=== PATIENT | female | born 1945 | race Caucasian/White ===

== ENCOUNTER → 2021-05-25 14:13 | Outpatient (BNVA) | payer OTHER, SELFPAY | PROVIDERS: PCP Nurse Practitioner Family; Visit Provider Nurse Practitioner Family | DX: E11.9 Type 2 diabetes mellitus without complications (principal); E78.5 Hyperlipidemia, unspecified; Z90.12 Acquired absence of left breast and nipple | CPT/HCPCS: 80053; 80061; 83036; 84443; 85025 ==

== ENCOUNTER → 2022-02-13 10:40 | Outpatient (BNVA) | payer MEDICARE, SELFPAY | PROVIDERS: PCP Nurse Practitioner Family; Visit Provider Nurse Practitioner Family | DX: E11.9 Type 2 diabetes mellitus without complications (principal); E78.5 Hyperlipidemia, unspecified; I10 Essential (primary) hypertension; J44.9 Chronic obstructive pulmonary disease, unspecified; R23.4 Changes in skin texture; R21 Rash and other nonspecific skin eruption; Z12.39 Encounter for other screening for malignant neoplasm of breast; Z90.12 Acquired absence of left breast and nipple; F17.200 Nicotine dependence, unspecified, uncomplicated | CPT/HCPCS: 80053; 80061; 83036; 84443; 85025 ==

== ENCOUNTER → 2022-08-15 11:28 | Outpatient (BNVA) | payer MEDICARE, SELFPAY | PROVIDERS: PCP Nurse Practitioner Family; Visit Provider Nurse Practitioner Family | DX: E11.9 Type 2 diabetes mellitus without complications (principal); R25.1 Tremor, unspecified; L98.9 Disorder of the skin and subcutaneous tissue, unspecified; I10 Essential (primary) hypertension; E78.5 Hyperlipidemia, unspecified; J44.9 Chronic obstructive pulmonary disease, unspecified; F17.200 Nicotine dependence, unspecified, uncomplicated; Z12.39 Encounter for other screening for malignant neoplasm of breast | CPT/HCPCS: 80053; 80061; 83036; 84443; 85025 ==

== ENCOUNTER → 2022-12-20 13:43 | Outpatient (BNVA) | payer MEDICARE, SELFPAY | PROVIDERS: PCP Nurse Practitioner Family; Visit Provider Nurse Practitioner Family | DX: E11.9 Type 2 diabetes mellitus without complications (principal); E78.5 Hyperlipidemia, unspecified; I10 Essential (primary) hypertension; R23.4 Changes in skin texture; R21 Rash and other nonspecific skin eruption | CPT/HCPCS: 80053; 83036; 84443; 85025 ==

== ENCOUNTER → 2023-07-10 14:14 | Outpatient (BNVA) | payer BC, SELFPAY | PROVIDERS: PCP Nurse Practitioner Family; Visit Provider Nurse Practitioner Family | DX: E11.9 Type 2 diabetes mellitus without complications (principal); E78.5 Hyperlipidemia, unspecified; I10 Essential (primary) hypertension; R23.4 Changes in skin texture; R21 Rash and other nonspecific skin eruption; Z12.39 Encounter for other screening for malignant neoplasm of breast; Z85.3 Personal history of malignant neoplasm of breast; Z12.11 Encounter for screening for malignant neoplasm of colon | CPT/HCPCS: 80053; 80061; 83036; 84443; 85025 ==

== ENCOUNTER 2023-07-25 12:26 | Outpatient (CLI) | payer MEDICARE, SELFPAY ==
--- NOTE | 2023-07-25 13:00 | MM_ITS ---
WS: [id number] RIGHT 3D TOMOSYNTHESIS DIGITAL MAMMOGRAPHY WITH CAD CLINICAL INFORMATION: Z12.39 - Encounter for other screening for malignant neop... HISTORY: LEFT mastectomy COMPARISON: None available TECHNIQUE: 3 views of the right breast were obtained. FINDINGS: The right breast is composed of heterogeneous fibroglandular density tissue, which can limit the dete ction of small underlying mass lesions. Incidental punctate calcifications. No suspicious focal mass, asymmetry, calcifications, or architectural distortion. No evidence of serg gnancy. IMPRESSION: MM/[place] [id number] BI-RADS: 2-Benign FOLLOW UP: 1 Year Follow-up Recommend return to annual diagnostic mammography.
== END 2023-07-25 12:27 | disposition home or self-care (01) ==
PROVIDERS: PCP Nurse Practitioner Family; Visit Provider Nurse Practitioner Family
DX: Z12.31 Encounter for screening mammogram for malignant neoplasm of breast (principal); Z85.3 Personal history of malignant neoplasm of breast; Z90.12 Acquired absence of left breast and nipple
CPT/HCPCS: 77061; G0279

== ENCOUNTER 2023-08-29 06:25 | Day surgery (SDC) | payer MEDICARE, SELFPAY ==
[2023-08-29 06:38] VITALS: BMI 31.8
[2023-08-29 06:46] VITALS: BP 149/94; PULSE 94; RESP 20; TEMP 36.1; O2SAT 98
[2023-08-29] MEDS: sodium chloride 0.9% 1,000 ML 30 ML IV (06:55)
[2023-08-29 06:59] LABS: Glucose Point of Care 161 mg/dL (70-110)
--- NOTE | 2023-08-29 07:02 | P.HP_ITS ---
Providers/Chief Complaint Primary Care Provider: DUKE Short Chief Complaint: Z86.010 History of Present Illness Franca Rooney is a 78 year old female Review of Systems General: Reports: 10 or more systems reviewed and unremarkable except in HPI and below Medications/Allergies Home Medications Medication Instructions Recorded Confirmed Last Taken Type blood-glucose meter (Blood Glucose #1 ea 05/25/21 08/27/23 08/27/23 Rx Monitoring kit) atorvastatin 40 mg tablet 40 mg PO DAILY #90 tabs 07/11/23 08/27/23 08/27/23 Rx blood sugar diagnostic (Blood #100 ea 07/11/23 08/27/23 Unknown Rx Glucose Test strips) fluticasone fur. 200 mcg-umeclid 1 inh inhalation DAILY #60 ea 07/11/23 08/27/23 08/27/23 Rx 62.5 mcg-vilant 25 mcg inhalat.powder (Trelegy Ellipta) lancets 31 gauge #100 ea 07/11/23 08/27/23 08/27/23 Rx lisinopril 20 1 tab PO DAILY #90 tabs 07/11/23 08/27/23 08/27/23 Rx mg-hydrochlorothiazide 25 mg tablet metformin 1,000 mg tablet 1,000 mg PO DAILY #90 tabs 07/11/23 08/27/23 08/27/23 Rx triamcinolone acetonide 0.1 % 1 applic topical BID #30 grams 07/11/23 08/27/23 08/27/23 Rx topical ointment primidone 50 mg tablet 100 mg (2 x 50 mg) PO BID #360 tabs 07/23/23 08/27/23 08/27/23 Rx guaifenesin 600 mg tablet, 600 mg PO Q12H PRN Congestion 08/29/23 08/29/23 08/27/23 History extended release 12 hr (Mucinex) naproxen 220 mg-diphenhydramine 25 1 tab PO QPM 08/29/23 08/29/23 08/27/23 History mg tablet (Aleve PM) Allergies Allergy/AdvReac Type Severity Reaction Status Date / Time No Known Allergies Allergy Unverified 07/18/23 09:37 PFSH Acute PFSH: Medical History (Updated 07/18/23 @ 10:04 by Garrett Srivastava DO) Smoker COPD (chronic obstructive pulmonary disease) Hyperlipemia Essential hypertension Hx of breast cancer Surgical History (Updated 07/18/23 @ 10:04 by Garrett Srivastava DO) Hx of colonoscopy with polypectomy 5-8 yrs ago [facility] H/O subtotal mastectomy of left breast Hx of cholecystectomy Hx of cataract surgery History of tonsillectomy and adenoidectomy Social History Smoking and tobacco/nicotine status: current every day tobacco/nicotine user Second hand smoke exposure: No Alcohol intake: never Substance/Drug Use: never Adopted: No Caregiver/support person: No Lives independently: Yes Household members: none Housing: House Marital status: / Current occupational status: retired Vitals/I&O/Wt Last Vital Signs Temp 97 F L 08/29/23 06:46 Pulse 94 08/29/23 06:46 Resp 20 H 08/29/23 06:46 BP 149/94 08/29/23 06:46 Pulse Ox 98 08/29/23 06:46 O2 Del Method Room Air 08/29/23 06:46 Weight last 48 hrs Weight 180 lb A&P Assessment and plan (1) History of colonic polyps: Plan Colonoscopy Attestations Medical Necessity Statement*: Home Coding Level of Care Code Acute Code for Chg Fwd Diagnoses History of colonic polyps Z86.010
--- NOTE | 2023-08-29 07:15 | ANES.PREANE2 ---
Pre-Anesthetic Assessment Height/Weight: Height 1.6 m Weight 81.647 kg Temp Pulse Resp BP Pulse Ox O2 Del Method 97 F L 94 20 H 149/94 98 Room Air 08/29/23 06:46 08/29/23 06:46 08/29/23 06:46 08/29/23 06:46 08/29/23 06:46 08/29/23 06:46 Preop Diagnosis: screening Operation Date: 08/29/23 07:30 Proposed Procedures p Colonoscopy(Not Applicable) - Garrett Srivastava, DO Was Beta Julia taken within 24 hours: N/A Was Clonidine taken within 24 hours: N/A Last intake: Intake Last Liquid Date 08/28/23 Last Liquid Time 21:30 Last Solid Date 08/27/23 Last Solid Time 19:30 Social Tobacco and No alcohol Exam alert, oriented x 3 and regular rate & rhythm Airway Submandibular: within normal limits Cervical ROM: within normal limits Mallampati: Class II History/ROS No significant history except as noted and No significant complaints Pulmonary Chronic Obstructive Pulmonary Disease CV/HEM Hypertension None reported Hepatic None reported GI None reported Metabolic Diabetes Mellitus and Hyperlipidemia [facility] None reported Neuropsych None reported Anesthetic Plan ASA status: 3 Anesthesia: Anesthesia Evaluation and MAC Risk of > 500 ml blood loss (7ml/kg in children): Yes, adequate IV access and fluids planned Medications/Allergies Home Medications Medication Instructions Recorded Confirmed Last Taken Type blood-glucose meter (Blood Glucose #1 05/25/21 08/27/23 08/27/23 Rx Monitoring kit) atorvastatin 40 mg tablet 40 mg PO DAILY #90 tabs 07/11/23 08/27/23 08/27/23 Rx blood sugar diagnostic (Blood #100 ea 07/11/23 08/27/23 Unknown Rx Glucose Test strips) fluticasone fur. 200 mcg-umeclid 1 inh inhalation DAILY #60 ea 07/11/23 08/27/23 08/27/23 Rx 62.5 mcg-vilant 25 mcg inhalat.powder (Trelegy Ellipta) lancets 31 gauge #100 ea 07/11/23 08/27/23 08/27/23 Rx lisinopril 20 1 tab PO DAILY #90 tabs 07/11/23 08/27/23 08/27/23 Rx mg-hydrochlorothiazide 25 mg tablet metformin 1,000 mg tablet 1,000 mg PO DAILY #90 tabs 07/11/23 08/27/23 08/27/23 Rx triamcinolone acetonide 0.1 % 1 applic topical BID #30 grams 07/11/23 08/27/23 08/27/23 Rx topical ointment primidone 50 mg tablet 100 mg (2 x 50 mg) PO BID #360 tabs 07/23/23 08/27/23 08/27/23 Rx guaifenesin 600 mg tablet, 600 mg PO Q12H PRN Congestion 08/29/23 08/29/23 08/27/23 History extended release 12 hr (Mucinex) naproxen 220 mg-diphenhydramine 25 1 tab PO QPM 08/29/23 08/29/23 08/27/23 History mg tablet (Aleve PM) Allergies Allergy/AdvReac Type Severity Reaction Status Date / Time No Known Allergies Allergy Unverified 07/18/23 09:37 Current Medications Generic Name Dose Route Start Last Admin Trade Name Freq PRN Reason Stop Dose Admin Sodium Chloride 1,000 mls @ 30 mls/hr 08/29/23 06:45 08/29/23 06:55 Sodium Chloride 0.9% IV 30 mls/hr .Q24H IBETH Administration PFSH Anesthesia Medical History (Updated 07/18/23 @ 10:04 by Garrett Srivastava DO) Smoker COPD (chronic obstructive pulmonary disease) Hyperlipemia Essential hypertension Hx of breast cancer Surgical History (Updated 07/18/23 @ 10:04 by Garrett Srivastava DO) Hx of colonoscopy with polypectomy 5-8 yrs ago [facility] H/O subtotal mastectomy of left breast Hx of cholecystectomy Hx of cataract surgery History of tonsillectomy and adenoidectomy Social History Smoking and tobacco/nicotine status: current every day tobacco/nicotine user Second hand smoke exposure: No Alcohol intake: never Substance/Drug Use: never Adopted: No Caregiver/support person: No Lives independently: Yes Household members: none Housing: House Marital status: / Current occupational status: retired Data Anesthesia Cardiac Studies: No Data to Display
--- NOTE | 2023-08-29 07:16 | ANES.PREANE2 ---
Pre-Anesthetic Assessment Height/Weight: Height 1.6 m Weight 81.647 kg Temp Pulse Resp BP Pulse Ox O2 Del Method 97 F L 94 20 H 149/94 98 Room Air 08/29/23 06:46 08/29/23 06:46 08/29/23 06:46 08/29/23 06:46 08/29/23 06:46 08/29/23 06:46 Operation Date: 08/29/23 07:30 Proposed Procedures p Colonoscopy(Not Applicable) - Garrett Srivastava DO Last intake: Intake Last Liquid Date 08/28/23 Last Liquid Time 21:30 Last Solid Date 08/27/23 Last Solid Time 19:30 Social No alcohol and No tobacco Exam alert, oriented x 3, clear to auscultation bilaterally and regular rate & rhythm Airway Submandibular: within normal limits Cervical ROM: Other (limited) Mallampati: Class II Metabolic Diabetes Mellitus Anesthetic Plan ASA status: 3 Anesthesia: MAC Medications/Allergies Home Medications Medication Instructions Recorded Confirmed Last Taken Type blood-glucose meter (Blood Glucose #1 ea 05/25/21 08/27/23 08/27/23 Rx Monitoring kit) atorvastatin 40 mg tablet 40 mg PO DAILY #90 tabs 07/11/23 08/27/23 08/27/23 Rx blood sugar diagnostic (Blood #100 ea 07/11/23 08/27/23 Unknown Rx Glucose Test strips) fluticasone fur. 200 mcg-umeclid 1 inh inhalation DAILY #60 ea 07/11/23 08/27/23 08/27/23 Rx 62.5 mcg-vilant 25 mcg inhalat.powder (Trelegy Ellipta) lancets 31 gauge #100 ea 07/11/23 08/27/23 08/27/23 Rx lisinopril 20 1 tab PO DAILY #90 tabs 07/11/23 08/27/23 08/27/23 Rx mg-hydrochlorothiazide 25 mg tablet metformin 1,000 mg tablet 1,000 mg PO DAILY #90 tabs 07/11/23 08/27/23 08/27/23 Rx triamcinolone acetonide 0.1 % 1 applic topical BID #30 grams 07/11/23 08/27/23 08/27/23 Rx topical ointment primidone 50 mg tablet 100 mg (2 x 50 mg) PO BID #360 tabs 0308/27/23 08/27/23 Rx guaifenesin 600 mg tablet, 600 mg PO Q12H PRN Congestion 08/29/23 08/29/23 08/27/23 History extended release 12 hr (Mucinex) naproxen 220 mg-diphenhydramine 25 1 tab PO QPM 08/29/23 08/29/23 08/27/23 History mg tablet (Aleve PM) Allergies Allergy/AdvReac Type Severity Reaction Status Date / Time No Known Allergies Allergy Unverified 07/18/23 09:37 Current Medications Generic Name Dose Route Start Last Admin Trade Name Freq PRN Reason Stop Dose Admin Sodium Chloride 1,000 mls @ 30 mls/hr 08/29/23 06:45 08/29/23 06:55 Sodium Chloride 0.9% IV 30 mls/hr .Q24H IBETH Administration PFSH Anesthesia Medical History (Updated 07/18/23 @ 10:04 by Garrett Srivastava DO) Smoker COPD (chronic obstructive pulmonary disease) Hyperlipemia Essential hypertension Hx of breast cancer Surgical History (Updated 07/18/23 @ 10:04 by Garrett Srivastava DO) Hx of colonoscopy with polypectomy 5-8 yrs ago [facility] H/O subtotal mastectomy of left breast Hx of cholecystectomy Hx of cataract surgery History of tonsillectomy and adenoidectomy Social History Smoking and tobacco/nicotine status: current every day tobacco/nicotine user Second hand smoke exposure: No Alcohol intake: never Substance/Drug Use: never Adopted: No Caregiver/support person: No Lives independently: Yes Household members: none Housing: House Marital status: / Current occupational status: retired Data Anesthesia Cardiac Studies: No Data to Display
[2023-08-29 08:11] VITALS: BP 108/55; PULSE 70; RESP 18; TEMP 36.8; O2SAT 94
[2023-08-29 08:20] VITALS: BP 126/88; PULSE 71; RESP 18; O2SAT 94
--- NOTE | 2023-08-29 12:11 | ANE.PACU2 ---
Inpatient post-anesthesia follow up: Vital signs: Temperature 98.2 F Pulse Rate 71 Respiratory Rate 18 Blood Pressure 126/88 Pulse Oximetry 94 Oxygen Delivery Me thod Room Air Oxygen Flow Rate Fraction of Inspir ed Oxygen Hydration adequate: Yes Nausea and vomiting: No Pain level: 1 Mental status: Baseline
== END 2023-08-29 08:41 | disposition home or self-care (01) ==
PROVIDERS: PCP Nurse Practitioner Family; Visit Provider Surgery
PROC: 0DJD8ZZ Inspection of Lower Intestinal Tract, Via Natural or Artificial Opening Endoscopic (ICD-10-PCS; CPT 45378; principal; 2023-08-29 07:30)
DX: Z12.11 Encounter for screening for malignant neoplasm of colon (principal); Z86.010 Personal history of colon polyps; K57.30 Diverticulosis of large intestine without perforation or abscess without bleeding; K63.5 Polyp of colon; J44.9 Chronic obstructive pulmonary disease, unspecified; I10 Essential (primary) hypertension; E11.9 Type 2 diabetes mellitus without complications; E78.5 Hyperlipidemia, unspecified; Z85.3 Personal history of malignant neoplasm of breast; F17.200 Nicotine dependence, unspecified, uncomplicated
CPT/HCPCS: 36416; 45385; 82962; 88305; J2704; J7030

== ENCOUNTER → 2023-09-17 14:09 | Outpatient (BNVA) | payer MEDICARE, SELFPAY | PROVIDERS: PCP Nurse Practitioner Family; Visit Provider Surgery | DX: Z09 Encounter for follow-up examination after completed treatment for conditions other than malignant neoplasm (principal); K63.5 Polyp of colon; Z85.3 Personal history of malignant neoplasm of breast | CPT/HCPCS: 99214 ==

== ENCOUNTER 2024-01-09 11:25 | Outpatient (CLI) | payer MEDICARE, SELFPAY ==
--- NOTE | 2024-01-09 11:57 | XRR_ITS ---
PROCEDURE INFORMATION: Exam: XR Chest Exam date and time: 01/09/2024 12:19 PM Age: 78 years old Clinical indication: Pre-operative exam; Cardiovascular screening and respiratory screening exam; Prior surgery; Surgery date: 6+ months; Surgery type: Plate in c-spine, gallbladder, mastectomy; Patient HX: HX of breast cancer; Additional info: Copd/htn/dm TECHNIQUE: Imaging protocol: Radiologic exam of the chest. Views: 2 views. COMPARISON: No relevant prior studies available. FINDINGS: Lungs: Right middle lobe consolidation/collapse. The left lung is clear. Pleural spaces: No sizable pleural effusion or pneumothorax. Heart/Mediastinum: No cardiomegaly. Bones/joints: ACDF. XR/XR chest 2V* [id number] IMPRESSION: Right middle lobe consolidation/collapse. Recommend correlation with CT.
[2024-01-09 12:12] LABS: Basophils # 0.1 10^3/uL (0.0-0.1); Basophils % 0.6 %; Eosinophils # 0.5 10^3/uL (0.0-0.8); Eosinophils % 4.7 %; Hematocrit 42.8 % (36-47); Lymphocytes # 2.7 10^3/uL (0.8-4.8); Lymphocytes % 27.1 %; Mean Corpuscular HGB Conc 33.6 g/dL (30-55); Mean Corpuscular Hemoglobin 31.6 pg (27-33); Mean Corpuscular Volume 94.1 fl (85-98); Mean Platelet Volume 9.4 fL (7.4-10.4); Monocytes # 0.6 10^3/uL (0.2-0.9); Monocytes % 6.1 %; Neutrophils # 5.97 10^3/uL (1.8-7.7); Neutrophils % 61.1 %; Nucleated Red Blood Cells % 0 %; Platelet Count 344 10^3/cmm (157-399); Red Blood Count 4.55 10^6/uL (3.85-5.65); Red Cell Distribution Width 12.1 % (12.1-15.1); White Blood Count 9.78 10^3/uL (3.29-11.43)
[2024-01-09 12:40] LABS: Anion Gap 15.6 (5-19); Blood Urea Nitrogen 24 mg/dL (8-23); Calcium 9.2 mg/dL (8.5-10.5); Carbon Dioxide 25 mmol/L (22-29); Chloride 101 mmol/L (98-107); Glucose 175 mg/dL (65-115); Osmolality Calculated 292 mOsm/kg (285-295); Potassium 4.6 mmol/L (3.5-5.1); Sodium 137 mmol/L (136-145)
== END 2024-01-09 11:26 | disposition home or self-care (01) ==
LOC: LAB 11:27
PROVIDERS: PCP Nurse Practitioner Family; Visit Provider Surgery Plastic and Reconstructive Surgery
DX: J18.1 Lobar pneumonia, unspecified organism (principal); I10 Essential (primary) hypertension; E08.8 Diabetes mellitus due to underlying condition with unspecified complications; J44.9 Chronic obstructive pulmonary disease, unspecified
CPT/HCPCS: 36415; 71046; 80048; 85025

== ENCOUNTER → 2024-01-10 14:18 | Outpatient (BNVA) | payer MEDICARE, SELFPAY | PROVIDERS: PCP Nurse Practitioner Family; Visit Provider Internal Medicine Cardiovascular Disease | DX: I10 Essential (primary) hypertension (principal); E11.9 Type 2 diabetes mellitus without complications; I49.3 Ventricular premature depolarization | CPT/HCPCS: 93005 ==

== ENCOUNTER 2024-01-21 07:17 | Outpatient (CLI) | payer MEDICARE, SELFPAY ==
--- NOTE | 2024-01-21 07:30 | CT_ITS ---
WS: [id number] CT chest w con* [id number] HISTORY: J44.9 - Chronic obstructive pulmonary disease, unspecified TECHNIQUE: Axial imaging performed through the thorax. Coronal and sagittal reformats are submitted. All CT scans at [facility] use at least one of these dose optimization techniques: automated exposure control; mA and/or kV adjustment per patient size (includes targeted exams where dose is mat ched to clinical indication); or iterative reconstruction. CONTRAST: Omnipaque 350; 100 mL IV. DLP: 399.36 mGy.cm COMPARISON: Chest radiograph 01/09/2024 Lungs and central airway: Hyperexpanded lungs with emphysema. Volume loss and partial atelectasis in the RIGHT middle lobe seen on the recent radiograph has essentially resolved. There is a linear scar at the RIGHT apex. [id number] in its appearance. There is mild bilateral interstitial thickening. More prominent reticular nodular, tree-in-bud airspace disease in the RIGHT lower lobe there is no ma ss. Mild circumferential bronchial wall thickening proximal LEFT lower lobe bronchus. Pleura: Normal. No pleural effusion. Heart and pericardium: Normal size heart with no pericardial effusion. Mediastinum and justino: No mediastinum or hilar adenopathy. Vessels: Small amount of plaque at the origin of the innominate and LEFT subclavian artery. Mild athe rosclerosis aorta. Chest wall and lower neck: Prior LEFT mastectomy. Mastectomy site is appropriate. No mass. Upper abdomen: Prior cholecystectomy. 7 mm cyst in the LEFT hepatic lobe. There may be additional cys t posterior to the jaden hepatis. There are additional scattered areas in the liver which are too sma ll to characterize. These may be cysts. Early metastatic sites are not excluded on this appearance. L EFT adrenal mass 2.1 x 2.2 cm. RIGHT adrenal gland as visualized is negative. Osseous structures: No destructive process. CT/CT chest w con* [id number] IMPRESSION: 1. Interval resolution of the RIGHT middle lobe atelectasis as compared to the prior chest radiograph of 01/09/2024. 2. Mild tree-in-bud airspace disease consistent with endobronchial pneumonia a t the RIGHT lung base. 3. Indeterminate low-attenuation lesions in the liver and along the LEFT adren al mass. To reevaluate both the liver and the adrenal gland consider follow-up CT for adrenal mass protocol. Metastatic disease needs to be excluded. 4. No mediastinal or hilar adenopathy. 5. LEFT lower lobe proximal bronchial wall thickening. 6. Prior LEFT mastectomy. 7. Prior cholecystectomy.
[2024-01-21] MEDS: iohexol 350 mg/mL 500 mL Btl (per mL) IV (07:43)
== END 2024-01-21 07:18 | disposition home or self-care (01) ==
LOC: RAD 07:17
PROVIDERS: PCP Nurse Practitioner Family; Visit Provider Nurse Practitioner Family
DX: J44.9 Chronic obstructive pulmonary disease, unspecified (principal); J18.1 Lobar pneumonia, unspecified organism; J43.9 Emphysema, unspecified; Q44.6 Cystic disease of liver; D35.02 Benign neoplasm of left adrenal gland; Z90.49 Acquired absence of other specified parts of digestive tract; Z98.890 Other specified postprocedural states; Z85.3 Personal history of malignant neoplasm of breast; F17.200 Nicotine dependence, unspecified, uncomplicated
CPT/HCPCS: 71260

== ENCOUNTER 2024-02-14 13:00 | Outpatient (CLI) | payer MEDICARE, SELFPAY ==
--- NOTE | 2024-02-14 13:04 | CTR_ITS ---
PROCEDURE INFORMATION: Exam: CT Chest Without and With Contrast; Diagnostic Exam date and time: 02/14/2024 1:18 PM Age: 78 years old Clinical indication: Condition or disease; Other: Hepatomegaly; Primary cancer: Breast; Prior surgery; Surgery date: 6+ months; Surgery type: Left mastectomy, spine; Patient HX: F/u on left adrenal mass. PT complains of sharp ruq pain that comes and goes. ; Additional info: R16.0 - hepatomegaly, not elsewhere classified, adrenal protocol TECHNIQUE: Imaging protocol: Diagnostic computed tomography of the chest without and with contrast. Radiation optimization: All CT scans at this facility use at least one of these dose optimization techniques: automated exposure control; mA and/or kV adjustment per patient size (includes targeted exams where dose is matched to clinical indication); or iterative reconstruction. Contrast material: OMNI 350; Contrast volume: 100 ml; Contrast route: INTRAVENOUS (IV); COMPARISON: CT chest w con* [id number] 01/21/2024 7:34 AM RADIATION DOSE METRICS: Total DLP (mGy-cm): 2057. FINDINGS: Lungs: Unremarkable. No consolidation. No masses. Pleural spaces: Unremarkable. No pneumothorax. No pleural effusion. Heart: Unremarkable. No cardiomegaly. No pericardial effusion. Coronary arteries: Multivessel atherosclerotic disease which involves the coronary arteries. Lymph nodes: Unremarkable. No enlarged lymph nodes. Vasculature: No central filling defects within the main pulmonary arteries through the first order segmental branches to suggest pulmonary embolism. Distal to this, the examination is inconclusive secondary to inadequate opacification of the distal pulmonary arteries. Bones/joints: Unremarkable. No acute fracture. Soft tissues: Unremarkable. PROCEDURE INFORMATION: Exam: CT Abdomen And Pelvis Without And With Contrast Exam date and time: 02/14/2024 1:18 PM Age: 78 years old Clinical indication: Condition or disease; Other: Hepatomegaly; Primary cancer: Breast; Prior surgery; Surgery date: 6+ months; Surgery type: Left mastectomy, spine; Patient HX: F/u on left adrenal mass. PT complains of sharp ruq pain that comes and goes. ; Additional info: R16.0 - hepatomegaly, not elsewhere classified, adrenal protocol TECHNIQUE: Imaging protocol: Computed tomography of the abdomen and pelvis without and with contrast. Radiation optimization: All CT scans at this facility use at least one of these dose optimization techniques: automated exposure control; mA and/or kV adjustment per patient size (includes targeted exams where dose is matched to clinical indication); or iterative reconstruction. Contrast material: OMNI 350; Contrast volume: 100 ml; Contrast route: INTRAVENOUS (IV); COMPARISON: CT chest w con* [id number] 01/21/2024 7:34 AM RADIATION DOSE METRICS: Total DLP (mGy-cm): 2057. FINDINGS: Liver: See Gallbladder and biliary ducts finding. Gallbladder and biliary ducts: The gallbladder has been removed. There are multiple subcentimeter hepatic cysts with benign features. Pancreas: Normal. No ductal dilation. Spleen: Normal. No splenomegaly. Adrenal glands: There is a focal hypodense mass in the left adrenal gland, consistent in appearance and density with a benign adrenal adenoma. This measures 2.2 x 1.8 cm in the AP/transverse dimensions, unchanged from the prior CT scan. Kidneys and ureters: 2.1 cm cyst with benign features off the medial aspect of the right renal superior pole has benign characteristics. Follow-up is not necessary. Stomach and bowel: There is diverticulosis of the colon without evidence of diverticulitis. Appendix: No evidence of appendicitis. Intraperitoneal space: Unremarkable. No free air. No significant fluid collection. Vasculature: Unremarkable. No abdominal aortic aneurysm. Lymph nodes: Unremarkable. No enlarged lymph nodes. Urinary bladder: Unremarkable as visualized. Reproductive: Unremarkable as visualized. Bones/joints: Unremarkable. No acute fracture. Soft tissues: Small fat containing umbilical hernia. CT/CT abdpel wo/w [id number] IMPRESSION: 1. No central filling defects within the main pulmonary arteries through the first order segmental branches to suggest pulmonary embolism. Distal to this, the examination is inconclusive secondary to inadequate opacification of the distal pulmonary arteries. 2. Multivessel atherosclerotic disease which involves the coronary arteries. IMPRESSION: There is a focal hypodense mass in the left adrenal gland, consistent in appearance and density with a benign adrenal adenoma. COMMENTS: Consistent with the [employer]'s Incidental Findings Committee white paper (J Am Adali Radiol 2018): Any incidental renal lesion less than 1 cm or classified as too small to characterize, or any incidental cystic renal lesion characterized as simple-appearing, is likely benign. No follow-up imaging is recommended for these lesions per consensus recommendations based on imaging criteria.
[2024-02-14] MEDS: iohexol 350 mg/mL 500 mL Btl (per mL) IV (14:03)
== END 2024-02-14 13:01 | disposition home or self-care (01) ==
PROVIDERS: PCP Nurse Practitioner Family; Visit Provider Nurse Practitioner Family
DX: R16.0 Hepatomegaly, not elsewhere classified (principal); I25.84 Coronary atherosclerosis due to calcified coronary lesion; D35.02 Benign neoplasm of left adrenal gland; N28.1 Cyst of kidney, acquired; K57.90 Diverticulosis of intestine, part unspecified, without perforation or abscess without bleeding; Z90.49 Acquired absence of other specified parts of digestive tract
CPT/HCPCS: 71260; 74178

== ENCOUNTER → 2024-03-03 12:33 | Outpatient (BNVA) | payer MEDICARE, SELFPAY | PROVIDERS: PCP Nurse Practitioner Family; Visit Provider Nurse Practitioner Family | DX: Z01.818 Encounter for other preprocedural examination (principal) | CPT/HCPCS: 80053; 85025 ==

== ENCOUNTER → 2024-08-04 10:50 | Outpatient (BNVA) | payer MEDICARE, SELFPAY | PROVIDERS: PCP Nurse Practitioner Family; Visit Provider Family Medicine | DX: Z53.9 Procedure and treatment not carried out, unspecified reason (principal) | CPT/HCPCS: 93005 ==

== ENCOUNTER → 2025-02-17 10:51 | Outpatient (BNVA) | payer MEDICARE, SELFPAY | PROVIDERS: PCP Nurse Practitioner Family; Visit Provider Nurse Practitioner Family | DX: I10 Essential (primary) hypertension (principal); E11.9 Type 2 diabetes mellitus without complications; E78.2 Mixed hyperlipidemia | CPT/HCPCS: 80053; 80061; 83036; 84443; 85025 ==

== ENCOUNTER 2025-02-28 05:00 | Outpatient (CLI) | payer MEDICARE, SELFPAY | END 2025-02-28 05:01 | LOC: SPT 03-23 09:51 | PROVIDERS: Visit Provider Podiatrist Foot & Ankle Surgery | DX: Z46.89 Encounter for fitting and adjustment of other specified devices (principal); S92.321D Displaced fracture of second metatarsal bone, right foot, subsequent encounter for fracture with routine healing; S92.331D Displaced fracture of third metatarsal bone, right foot, subsequent encounter for fracture with routine healing; S92.501D Displaced unspecified fracture of right lesser toe(s), subsequent encounter for fracture with routine healing; X58.XXXD Exposure to other specified factors, subsequent encounter; S92.324A Nondisplaced fracture of second metatarsal bone, right foot, initial encounter for closed fracture; S92.334A Nondisplaced fracture of third metatarsal bone, right foot, initial encounter for closed fracture; S92.501A Displaced unspecified fracture of right lesser toe(s), initial encounter for closed fracture; W19.XXXA Unspecified fall, initial encounter | CPT/HCPCS: 99204; L4361 ==

== ENCOUNTER 2025-03-11 11:19 | Outpatient (CLI) | payer MEDICARE, SELFPAY ==
--- NOTE | 2025-03-11 11:31 | MM_ITS ---
WS: [id number] RIGHT 3D TOMOSYNTHESIS DIGITAL MAMMOGRAPHY WITH CAD CLINICAL INFORMATION: Z85.3 - Personal history of malignant neoplasm of breast COMPARISON: 2023 TECHNIQUE: 3 views of the right breast were obtained. FINDINGS: The right breast is composed of heterogeneous fibroglandular density tissue, which can limit the detection of small underlying mass lesions. Coarse calcifications RIGHT breast No suspicious focal mass, asymmetry, calcifications, or architectural distortion. No evidence of malignancy. MM/MM diag RT tomosynthesis [id number] IMPRESSION: DENSITY: The breasts are heterogeneously dense, which may obscure small masses. BI-RADS: 2 - Benign FOLLOW UP: 1 Year Follow-up Recommend return to annual diagnostic mammography.
== END 2025-03-11 11:20 | disposition home or self-care (01) ==
PROVIDERS: PCP Nurse Practitioner Family; Visit Provider Nurse Practitioner Family
DX: Z12.31 Encounter for screening mammogram for malignant neoplasm of breast (principal); R92.333 Mammographic heterogeneous density, bilateral breasts; R92.323 Mammographic fibroglandular density, bilateral breasts; R92.1 Mammographic calcification found on diagnostic imaging of breast
CPT/HCPCS: 77061; G0279

== ENCOUNTER → 2025-03-16 09:51 | Outpatient (BNVA) | payer MEDICARE, SELFPAY | PROVIDERS: PCP Nurse Practitioner Family; Visit Provider Nurse Practitioner Family | DX: S93.134A Subluxation of interphalangeal joint of right lesser toe(s), initial encounter (principal); X58.XXXA Exposure to other specified factors, initial encounter; M85.871 Other specified disorders of bone density and structure, right ankle and foot; M25.871 Other specified joint disorders, right ankle and foot; M19.071 Primary osteoarthritis, right ankle and foot | CPT/HCPCS: 73630 ==

== ENCOUNTER → 2025-03-31 10:55 | Outpatient (BNVA) | payer MEDICARE, SELFPAY | PROVIDERS: PCP Nurse Practitioner Family; Visit Provider Nurse Practitioner Family | DX: E11.9 Type 2 diabetes mellitus without complications (principal) | CPT/HCPCS: 82043 ==

== ENCOUNTER → 2025-04-08 08:13 | Outpatient (BNVA) | payer MEDICARE, SELFPAY | PROVIDERS: PCP Nurse Practitioner Family; Visit Provider Podiatrist Foot & Ankle Surgery | DX: S92.324D Nondisplaced fracture of second metatarsal bone, right foot, subsequent encounter for fracture with routine healing (principal); S92.501D Displaced unspecified fracture of right lesser toe(s), subsequent encounter for fracture with routine healing; S92.334D Nondisplaced fracture of third metatarsal bone, right foot, subsequent encounter for fracture with routine healing; X58.XXXD Exposure to other specified factors, subsequent encounter | CPT/HCPCS: 73630; 99213 ==